=== PATIENT | male | born 1975 | race Caucasian/White ===

== ENCOUNTER 2017-01-08 05:57 | Day surgery (SDC) | payer BC ==
[2017-01-08] MEDS ORDERED: VERSED IV NR ×2 (06:00→08:00)
[2017-01-08] MEDS ORDERED: NACL 0.9% 1000 ML 1,000 ML IV SCH (06:00)
[2017-01-08] MEDS ORDERED: PEPCID PO NR (06:00)
[2017-01-08] MEDS ORDERED: NACL BACTERIOSTATIC INFILTRATI ONE (06:28)
--- NOTE | 2017-01-08 07:09 | Anesthesia Consultation ---
Anesthesia Consult and Med Hx Date of service: 01/08/17 - Airway Anesthetic Teeth Evaluation: Good ROM Head & Neck: Adequate Mental/Hyoid Distance: Adequate Mallampati Class: Class II Intubation Access Assessment: Good - Pulmonary Exam CTA: Yes - Cardiac Exam Cardiac Exam: RRR - Pre-Operative Health Status ASA Pre-Surgery Classification: ASA1 Proposed Anesthetic Plan: General - Pre-Anesthesia Comment Pre-Anesthesia Comments: Healthr, no meds - Central Nervous System Hx Psychiatric Problems: No - Other Systems Hx Cancer: No
--- NOTE | 2017-01-08 07:09 | Anesthesia Day of Surgery ---
Anesthesia Day of Surgery - Day of Surgery Patient Examined: Yes Patient H&P Reviewed: Yes Patient is NPO: Yes
[2017-01-08] MEDS ORDERED: DIPRIVAN 10 MG/ML IV ONE (07:16)
[2017-01-08] MEDS ORDERED: SUBLIMAZE ONE (07:16)
[2017-01-08] MEDS ORDERED: HYDROGEN PEROXIDE ONE (07:18)
[2017-01-08] MEDS ORDERED: FLOXIN OTIC ONE (07:18)
[2017-01-08] MEDS ORDERED: ANTIBIOTIC OINT TP ONE (07:18)
[2017-01-08] MEDS ORDERED: ADRENALIN ONE (07:19)
[2017-01-08] MEDS ORDERED: XYLOCAINE 2%/ EPI 1:50,000 (DENTAL) INFILTRATI ONE ×3 (07:19→08:47)
[2017-01-08] MEDS ORDERED: GELFOAM TP ONE ×2 (07:19→08:47)
[2017-01-08] MEDS ORDERED: PEPCID IV NR (08:00)
[2017-01-08] MEDS ORDERED: ePHEDrine SULFATE ONE (08:36)
[2017-01-08] MEDS ORDERED: DECADRON ONE (08:37)
[2017-01-08] MEDS ORDERED: XYLOCAINE MPF 2% ONE (08:37)
[2017-01-08] MEDS ORDERED: ZOFRAN ONE (08:37)
[2017-01-08] MEDS ORDERED: FLOXIN OTIC AS ONE (08:47)
[2017-01-08] MEDS ORDERED: NACL 0.9% IR ONE (08:47)
[2017-01-08] MEDS ORDERED: ADRENALIN IV ONE (08:47)
[2017-01-08] MEDS ORDERED: ANCEF/STERILE WATER 2 GM/20 ML IV NR (09:00)
[2017-01-08] MEDS ORDERED: DILAUDID ONE (10:26)
--- NOTE | 2017-01-08 11:11 | Short Stay Summary ---
Short Stay Documentation Date of service: 01/08/17 - Allergies and Medications Current Medications: Allergies No Known Allergies Allergy (Verified 01/08/17 06:46) Home Medications Medication Instructions Recorded Confirmed Last Taken Type No Known Home Medications [No 01/05/17 01/05/17 Unknown History Reported Home Medications] Active Medications Cefazolin Sodium (Ancef/Sterile Water 2 Gm/20 Ml) 2 gm IV PREOP NR Stop: 01/08/17 21:00 Famotidine (Pepcid) 20 mg PO PREOP NR Stop: 01/08/17 23:59 Last Admin: 01/08/17 06:47 Dose: 20 mg Sodium Chloride (Nacl 0.9% 1000 Ml) 1,000 mls @ 75 mls/hr IV DIRECT GISELLE Last Admin: 01/08/17 06:55 Dose: 75 mls/hr Midazolam HCl (Versed) 2 mg IV PREOP NR Stop: 01/08/17 23:59 Last Admin: 01/08/17 07:10 Dose: 2 mg Midazolam HCl (Versed) 2 mg IV PREOP NR Stop: 01/08/17 23:59 - Brief post op/procedure progress note Date of procedure: 01/08/17 Pre-op diagnosis: Left tympanic membrane perforation Post-op diagnosis: same Procedure: 1. Left tympanoplasty via retroauricular incision 2. Microdissection using the operating microscope Anesthesia: other (General via laryngeal mask anesthesia (LMA)) Findings: Large tympanic membrane perforation involving both inferior quadrants. Surgeon: AZUCENA SEBASTIAN Estimated blood loss: minimal Pathology: none Condition: stable - Disposition Condition at discharge: Good Short Stay Discharge Plan Activity: advance as tolerated Diet: advance as tolerated Wound: per your surgeon's advice Follow up with: AZUCENA SEBASTIAN MD [Staff Physician] - 48 Hours Prescriptions: HYDROcodone/APAP 7.5-325 [[place] 7.5/325] 1 each PO Q8HR PRN #10 tablet PRN Reason: Pain Promethazine [Phenergan TAB] 12.5 mg PO Q8HR PRN #7 tab PRN Reason: Nausea
[2017-01-08] MEDS ORDERED: NORCO 7.5/325 PO SCH (12:15)
--- NOTE | 2017-01-08 13:10 | Operative Report ---
PRINCIPAL DIAGNOSES: 1. Left tympanic membrane perforation. 2. 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 3. Chronic otitis media, left ear. PRINCIPAL SURGICAL PROCEDURES: 1. Left tympanoplasty via retroauricular incision. 2. Microdissection using the operating microscope. SURGEON: Dafne Soto M.D. ANESTHESIA: General via laryngeal mask anesthesia. COMPLICATIONS: None. SPECIMENS: None. ESTIMATED BLOOD LOSS: 7 mL of blood. INDICATION FOR SURGERY: The patient is a 41-year-old male who presented with a large tympanic membrane perforation involving both inferior quadrants. Tympanoplasty was recommended. PROCEDURE: The patient was taken to the operating room and was placed on the operating table in supine position. After satisfactory plane of general anesthesia via laryngeal mask, anesthesia was achieved, the head was gently turned to the right side exposing the left ear. Betadine was used to clean the retroauricular area and meatus and total of 1.8 mL of 2% Xylocaine with 1:50,000 epinephrine was injected into the retroauricular area in lateral aspect of the external ear canal. Ear was then prepped and draped in the usual manner. Surgical procedure started by making a retroauricular skin incision through the skin and subcutaneous tissue to the plane of fascia covering temporalis muscles superiorly and periosteum covering the mastoid inferiorly. Bleeding was stopped using Bovie cautery. Fascia of the temporalis muscle was harvested, it was placed in fascia press and the donor site was cauterized. A T-type incision was made in the periosteum horizontal incision along the temporal line and second incision perpendicular to it towards mastoid tip. Periosteal flaps were elevated superiorly, posteriorly, and anteriorly. Anterior and posterior bony canal was identified. Skin line in posterior canal was elevated and incised 5 mm medial to the mastoid cortex with an 11 blade from 6 o'clock to 12 o'clock. Self-retaining retractors were inserted. Tympanic membrane perforation was brought into focus of the operating microscope. A sickle knife was used to excise the free margin of the perforation circumferentially and small cup forceps was used to remove the tissue from the edge of the perforation. This enlarged the perforation so that we were reaching the inferior margin of the anterosuperior quadrant. Two incisions were made in the external auditory canal, 1 incision started at 10 o'clock and [address] and carried laterally, inferiorly and then posteriorly and superior incision was placed at 12 o'clock and just carried laterally. Large tympanomeatal flap was elevated. The annulus was elevated in the posterior inferior quadrant and then all the way to 10 o'clock and the posterior superior quadrant to the neck of the malleus. Chorda tympani was preserved throughout the entire procedure. Ossicular chain was carefully examined, it was intact and mobile. Keeping the pledgets with epinephrine in the middle ear, we took the fascia off the fascia press, wrapped it, and then removed the pledgets and placed the fascia medial to the tympanic membrane as an underlay graft, also allowing the fascia to lie against the anterior, inferior and posterior bony canal wall. We then passed tympanic membrane and tympanomeatal flap over the fascia and then elevated both together and then used dry pieces of Gelfoam to support the fascia from within the middle ear. We then replaced tympanomeatal flap and fascia against the anterior, inferior, and posterior bony canal wall. We had one more time verified the fascia was nicely covering the perforation. At that point, we packed the external auditory canal with moist Gelfoam soaked with ciprofloxacin. We then removed self-retaining retractors, closed the periosteal flaps with 4-0 Vicryl, closed the subcutaneous layer of skin incision with 4-0 Vicryl, and placed a 1/4 inch [place] drain to drain the retroauricular wound and closed the skin incision with 5-0 fast absorbing gut in a running locking manner. Mastoid dressing was applied. Following completion of the surgical procedure, the patient was extubated in the operating room and then transferred to recovery room in stable and satisfactory condition. JOB# [id number] BETI/MEHDI
[2017-01-08 19:45] VITALS: BP 125/73
== END 2017-01-08 13:30 | disposition home or self-care (01) ==
LOC: OR 05:57
PROVIDERS: ATTEND Otolaryngology Sleep Medicine
DX: H66.92 Otitis media, unspecified, left ear (principal); H72.92 Unspecified perforation of tympanic membrane, left ear; H90.12 Conductive hearing loss, unilateral, left ear, with unrestricted hearing on the contralateral side
CPT/HCPCS: 69631; A4649; J0171; J0690; J1100; J1170; J2250; J2405; J2704; J3010; J7030